=== PATIENT | male | born 1960 | race Caucasian/White ===

== ENCOUNTER 2019-11-08 08:03 | Day surgery (SDC) | payer BC ==
[2019-11-08] MEDS ORDERED: fentaNYL 100 MCG/2 ML SDV ONE (08:58)
[2019-11-08] MEDS ORDERED: Midazolam 1 MG/ML 2 ML SDV ONE (08:58)
[2019-11-08] MEDS ORDERED: Propofol 200 MG/20 ML SDV ONE ×2 (08:58→11:12)
[2019-11-08] MEDS ORDERED: Dextrose 5%-Lactated Ringers 1,000 ML IV SCH (09:15)
--- NOTE | 2019-11-09 11:26 | OR ---
DATE OF PROCEDURE: 11/08/2019 SURGEON: Ankit Lima MD PREOPERATIVE DIAGNOSES: 1. Gastroesophageal reflux disease. 2. History of some rectal bleeding. POSTOPERATIVE DIAGNOSES: 1. Upper endoscopy showing. a. 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 b. Mild proximal duodenitis. 2. Colonoscopy showing. a. Mildly excoriated hemorrhoids. b. Uncomplicated left colonic diverticulosis. OPERATIVE PROCEDURES: 1. Esophagogastroduodenoscopy with. a. Biopsy of esophagogastric junction for histologic evaluation. b. Biopsies of antrum for CLOtest. 2. Flexible colonoscopy. ANESTHESIA: IV sedation. INDICATION FOR PROCEDURE: This is a 59-year-old male presenting with history of gastroesophageal reflux disease. Up until recently, he has treated this with oral antacids as well as some Zantac. He was recently placed on omeprazole 40 mg a day and, with this, he has had very good symptom control. He also has a history of some intermittent rectal bleeding which occurs every few weeks over the last year or more. The patient does not have any family or personal history of colonic neoplasia. The plan is to proceed with upper and lower endoscopies with biopsies and/or polypectomy as indicated. Potential risks including bleeding and perforation were discussed, and the patient wishes to proceed. DETAILS OF PROCEDURE: The patient was taken to the operating room and placed in a left lateral decubitus position. IV sedation was administered, after which, the upper GI endoscope was passed orally through the length of the esophagus, then into the stomach with retroflexion view of the fundus, thereafter through the pyloric channel and into the proximal duodenum. Findings included normal hypopharynx, larynx, upper esophageal sphincter, and esophageal body. At the EG junction, the patient was noted to have a small hiatal hernia between the range of 1 cm or so, with some mildly active gastroesophageal reflux disease. 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 There was no plaquing or stricturing or growth suggestive of neoplastic change. Within the stomach, no significant additional abnormalities were noted. There was some mild redness and edema of the proximal duodenal mucosa consistent with some duodenitis, but without ulcers or erosions. At this point, biopsies were obtained from the antrum and sent for CLOtest for H pylori. 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 No bleeding from the biopsy sites was seen, and the procedure then concluded. Attention was then taken to the colonoscopy. Initial digital rectal exam was performed and was unremarkable. Colonoscope was then passed into the rectum with retroflexion revealing some mildly excoriated hemorrhoidal columns. The scope was eventually passed to the level of the cecum. The prep was fairly good with only a small amount of liquid stool present. The patient did have some left-sided uncomplicated diverticulosis. Otherwise, there were no polyps, areas of colitis, or any signs of a neoplastic change. The scope was then withdrawn, the above findings reconfirmed, and the procedure then concluded. The patient's rectal bleeding by history as well as endoscopic findings, most likely is related to hemorrhoidal bleeding. He is instructed that if he has persistent bleeding over time, he can present for consideration of hemorrhoidal banding. Otherwise, we will have him stay on the omeprazole 40 mg a day at this point. To see ALISON Mcneal, in roughly 3 months to see how he is doing with reflux symptoms. Ankit Lima MD /[id number]
== END 2019-11-08 12:45 | disposition home or self-care (01) ==
LOC: JP.SDS 08:03
PROVIDERS: ATTEND Surgery
DX: K21.0 Gastro-esophageal reflux disease with esophagitis (principal); K44.9 Diaphragmatic hernia without obstruction or gangrene; K29.80 Duodenitis without bleeding; K64.9 Unspecified hemorrhoids; K57.30 Diverticulosis of large intestine without perforation or abscess without bleeding; Z87.19 Personal history of other diseases of the digestive system; Z79.899 Other long term (current) drug therapy; Z88.5 Allergy status to narcotic agent
CPT/HCPCS: 43239; 45378; 87081; J2250; J2704; J3010; J7121

== ENCOUNTER 2022-02-27 07:19 | Day surgery (SDC) | payer BC ==
[~2022-02-27 07:19] MED LIST: Midazolam 1 MG/ML 2 ML SDV ONE; Propofol 200 MG/20 ML SDV ONE; fentaNYL 100 MCG/2 ML SDV ONE
[2022-02-27] MEDS ORDERED: Dextrose 5%-Lactated Ringers 1,000 ML IV SCH (07:45)
== END 2022-02-27 10:35 | disposition home or self-care (01) ==
LOC: JP.SDS 07:19
PROVIDERS: ATTEND Surgery
DX: K20.0 Eosinophilic esophagitis (principal); K22.89 Other specified disease of esophagus; K44.9 Diaphragmatic hernia without obstruction or gangrene; K21.9 Gastro-esophageal reflux disease without esophagitis; E78.5 Hyperlipidemia, unspecified; F41.9 Anxiety disorder, unspecified; Z87.19 Personal history of other diseases of the digestive system
CPT/HCPCS: 43239; J2250; J2704; J3010; J7121

== ENCOUNTER 2022-09-14 15:39 | Emergency (ER) | payer BC ==
[2022-09-14 17:15] LABS: TROPONIN I HIGH SENSITIVITY 5.7 pg/mL (<=60.3)
== END 2022-09-14 17:52 | disposition home or self-care (01) ==
LOC: JP.ED 15:39
DX: R03.0 Elevated blood-pressure reading, without diagnosis of hypertension (principal); Z72.0 Tobacco use; Z88.8 Allergy status to other drugs, medicaments and biological substances; Z79.899 Other long term (current) drug therapy
CPT/HCPCS: 36415; 71046; 71046-26; 80048; 81001; 84484; 85025; 93005; 99284

== ENCOUNTER 2023-08-31 14:31 | Inpatient (IN) | payer BC ==
[2023-08-31] MEDS ORDERED: Lidocaine 1% 5 ML VIAL INJECT ONE (15:30)
[2023-08-31 15:39] LABS: BASOPHILS ABSOLUTE AUTO 0.06 K/uL (0.00-0.10); BASOPHILS PERCENT AUTO 0.5 % (0.1-1.3); EOSINOPHILS PERCENT AUTO 0.1 % (0.0-5.4); HEMATOCRIT 37.2 % (38.4-49.7); HEMOGLOBIN 12.1 g/dL (12.9-16.9); IMMATURE GRAN ABSOLUTE AUTO 0.05 K/uL (0.00-0.23); IMMATURE GRAN PERCENT AUTO 0.4 % (0.0-0.7); LYMPHOCYTES PERCENT AUTO 12.9 % (11.4-47.7); MEAN CORPUSCULAR HEMOGLOBIN 27.8 pg (31.6-35.5); MEAN CORPUSCULAR HGB CONC 32.5 g/dL (31.6-35.5); MEAN CORPUSCULAR VOLUME 85.5 fL (81.4-99.0); MONOCYTES ABSOLUTE AUTO 1.06 K/uL (0.20-0.90); MONOCYTES PERCENT AUTO 8.5 % (3.3-12.6); NEUTROPHILS ABSOLUTE AUTO 9.67 K/uL (1.0-7.6); NEUTROPHILS PERCENT AUTO 77.6 % (40.0-78.1); PLATELET COUNT,PLT 282 K/uL (130-375); RED BLOOD CELL COUNT 4.35 M/uL (4.14-5.76); WHITE BLOOD CELL COUNT,WBC 12.5 K/uL (3.2-11.0)
[2023-08-31 15:42] LABS: EOSINOPHILS ABSOLUTE AUTO 0.01 K/uL (0.00-0.40)
[2023-08-31] MEDS ORDERED: Sodium Chloride 0.9% 1,000 ML IV ONE ×2 (15:54→18:10)
[2023-08-31] MEDS ORDERED: Sodium Chloride 0.9% 10 ML Syringe FLUSH PRN (15:54)
[2023-08-31] MEDS ORDERED: Piperacillin/Tazobactam 3.375 GM in Sodium Chloride 0.9% 50 ML IV ONE (15:54)
[2023-08-31 16:01] LABS: C-REACTIVE PROTEIN 1.54 mg/dL (0.0-0.3); CALCIUM 8.6 mg/dL (8.5-10.1); CREATININE 0.9 mg/dL (0.8-1.3); EST CRCL DRUG DOSING (CG) 94.6 mL/min; POTASSIUM,K 4.5 mmol/L (3.6-5.2)
[2023-08-31 16:04] LABS: ANION GAP 15.5 mmol/L (5.0-14.0)
[2023-08-31] MEDS ORDERED: Piperacillin/Tazobactam/Dext 3.375 GM in Premix Bag 1 BAG IV ONE (17:30)
[2023-08-31] MEDS ORDERED: Naloxone 0.4 MG/ML SDV IVPUSH PRN (19:51)
[2023-08-31] MEDS ORDERED: Morphine 2 MG/ML SYRINGE IVPUSH ONE (19:51)
[2023-08-31 20:14] LABS: CORONAVIRUS COVID-19 NAA NEGATIVE (NEGATIVE); INFLUENZA A NAA NEGATIVE (NEGATIVE); INFLUENZA B NAA NEGATIVE (NEGATIVE); RESPIRATORY SYNCYTIAL VIR NAA NEGATIVE (NEGATIVE)
[2023-08-31] MEDS ORDERED: Docusate Sodium 100 MG Cap PO PRN (21:35)
[2023-08-31] MEDS ORDERED: Vancomycin 1 GM SDV IV SCH (21:35)
[2023-08-31] MEDS ORDERED: Diphtheria,Pertussis(Acell),Tetanus Vaccine 0.5 ML Syringe IM ONE (21:35)
[2023-08-31] MEDS ORDERED: Morphine 2 MG/ML SYRINGE IVPUSH PRN (21:35)
[2023-08-31] MEDS ORDERED: Bisacodyl 5 MG Tab PO PRN (21:35)
[2023-08-31] MEDS ORDERED: Ondansetron 4 MG/2 ML SDV IV PRN (21:35)
[2023-08-31] MEDS ORDERED: Ondansetron 4 MG Tab.DIS PO PRN (21:35)
[2023-08-31] MEDS ORDERED: Albuterol 0.083% 2.5 MG/3 ML Neb Soln NEB PRN (21:35)
[2023-08-31] MEDS ORDERED: Pantoprazole 40 MG Vial IV SCH (21:35)
[2023-08-31] MEDS ORDERED: Ketorolac 30 MG/ML SDV IVPUSH PRN (21:35)
[2023-08-31] MEDS: Sodium Chloride 0.9% 1,000 ML IV SCH (22:08)
[2023-08-31] MEDS: traZODone 50 MG Tab PO SCH (22:10)
[2023-08-31] MEDS: Acetaminophen 325 MG Tab PO PRN (22:10)
[2023-08-31] MEDS: Enoxaparin 40 MG/0.4 ML Syringe SUBCUT SCH (22:11)
[2023-08-31] MEDS ORDERED: Piperacillin/Tazobactam 3.375 GM in Sodium Chloride 0.9% 50 ML IV SCH (23:00)
[2023-08-31] MEDS: Piperacillin/Tazobactam 3.375 GM in Sodium Chloride 0.9% 50 ML IV SCH (23:46)
[2023-09-01 05:40] LABS: BASOPHILS ABSOLUTE AUTO 0.04 K/uL (0.00-0.10); BASOPHILS PERCENT AUTO 0.7 % (0.1-1.3); EOSINOPHILS ABSOLUTE AUTO 0.14 K/uL (0.00-0.40); EOSINOPHILS PERCENT AUTO 2.3 % (0.0-5.4); HEMATOCRIT 33.7 % (38.4-49.7); HEMOGLOBIN 10.8 g/dL (12.9-16.9); IMMATURE GRAN PERCENT AUTO 0.3 % (0.0-0.7); LYMPHOCYTES ABSOLUTE AUTO 1.18 K/uL (0.8-3.3); LYMPHOCYTES PERCENT AUTO 19.8 % (11.4-47.7); MEAN CORPUSCULAR HEMOGLOBIN 27.5 pg (31.6-35.5); MEAN CORPUSCULAR VOLUME 85.8 fL (81.4-99.0); MONOCYTES ABSOLUTE AUTO 0.51 K/uL (0.20-0.90); MONOCYTES PERCENT AUTO 8.5 % (3.3-12.6); NEUTROPHILS ABSOLUTE AUTO 4.08 K/uL (1.0-7.6); NEUTROPHILS PERCENT AUTO 68.4 % (40.0-78.1); PLATELET COUNT,PLT 250 K/uL (130-375); RED BLOOD CELL COUNT 3.93 M/uL (4.14-5.76)
[2023-09-01 05:46] LABS: IMMATURE GRAN ABSOLUTE AUTO 0.02 K/uL (0.00-0.23)
[2023-09-01 05:56] LABS: ANION GAP 10.7 mmol/L (5.0-14.0); C-REACTIVE PROTEIN 2.91 mg/dL (0.0-0.3); CALCIUM 7.7 mg/dL (8.5-10.1); CREATININE 0.9 mg/dL (0.8-1.3); EST CRCL DRUG DOSING (CG) 94.74 mL/min; POTASSIUM,K 3.6 mmol/L (3.6-5.2)
[2023-09-01] MEDS: Piperacillin/Tazobactam 3.375 GM in Sodium Chloride 0.9% 50 ML IV SCH (05:57)
[2023-09-01] MEDS: oxyCODONE 5 MG Tab PO PRN ×3 (06:15→19:59)
[2023-09-01] MEDS: Sodium Chloride 0.9% 1,000 ML IV SCH (06:39)
[2023-09-01] MEDS: Losartan 25 MG Tab PO SCH (09:02)
[2023-09-01] MEDS: Cholecalciferol (Vitamin D3) 25 MCG Tab PO SCH (09:02)
[2023-09-01] MEDS: Multivitamins with Iron/Calcium/Folic Acid/Minerals Tab PO SCH (09:03)
[2023-09-01] MEDS ORDERED: FLU (Fluarix Quad) QS2023-24(6MOS UP)/PF 60 MCG/0.5 ML Syringe IM ONE (10:00)
[2023-09-01] MEDS: Piperacillin/Tazobactam/Dext 3.375 GM in Premix Bag 1 BAG IV SCH ×3 (12:40→23:43)
[2023-09-01] MEDS: Pantoprazole 40 MG Tab.CR PO SCH (21:03)
[2023-09-01] MEDS: traZODone 50 MG Tab PO SCH (21:03)
[2023-09-01] MEDS: Enoxaparin 40 MG/0.4 ML Syringe SUBCUT SCH (21:04)
[2023-09-02] MEDS: oxyCODONE 5 MG Tab PO PRN ×4 (01:09→21:51)
[2023-09-02] MEDS: Piperacillin/Tazobactam/Dext 3.375 GM in Premix Bag 1 BAG IV SCH (05:19)
[2023-09-02] MEDS: Sodium Chloride 0.9% 1,000 ML IV SCH ×2 (05:20→13:19)
[2023-09-02 05:43] LABS: HEMATOCRIT 34.3 % (38.4-49.7); HEMOGLOBIN 11.2 g/dL (12.9-16.9); MEAN CORPUSCULAR HEMOGLOBIN 28.1 pg (31.6-35.5); MEAN CORPUSCULAR HGB CONC 32.7 g/dL (31.6-35.5); RED BLOOD CELL COUNT 3.99 M/uL (4.14-5.76); WHITE BLOOD CELL COUNT,WBC 5.4 K/uL (3.2-11.0)
[2023-09-02 06:14] LABS: CALCIUM 8.1 mg/dL (8.5-10.1); EST CRCL DRUG DOSING (CG) 85.26 mL/min; POTASSIUM,K 3.6 mmol/L (3.6-5.2); VANCOMYCIN RANDOM 9.3 ug/mL (0.0-50.0)
[2023-09-02 06:16] LABS: ANION GAP 13.6 mmol/L (5.0-14.0)
[2023-09-02] MEDS: Cholecalciferol (Vitamin D3) 25 MCG Tab PO SCH (09:20)
[2023-09-02] MEDS: Losartan 25 MG Tab PO SCH (09:22)
[2023-09-02] MEDS: Multivitamins with Iron/Calcium/Folic Acid/Minerals Tab PO SCH (09:22)
[2023-09-02] MEDS: traZODone 50 MG Tab PO SCH (21:24)
[2023-09-02] MEDS: Enoxaparin 40 MG/0.4 ML Syringe SUBCUT SCH (21:24)
[2023-09-02] MEDS: Pantoprazole 40 MG Tab.CR PO SCH (21:25)
[2023-09-03] MEDS: traZODone 50 MG Tab PO SCH ×2 (06:10→21:14)
[2023-09-03] MEDS: Multivitamins with Iron/Calcium/Folic Acid/Minerals Tab PO SCH (08:58)
[2023-09-03] MEDS: Cholecalciferol (Vitamin D3) 25 MCG Tab PO SCH (08:59)
[2023-09-03] MEDS: Sulfamethoxazole/Trimethoprim 800-160 MG Tab PO SCH ×2 (08:59→21:14)
[2023-09-03] MEDS: Losartan 25 MG Tab PO SCH (08:59)
[2023-09-03] MEDS: oxyCODONE 5 MG Tab PO PRN ×2 (12:36→19:36)
[2023-09-03] MEDS: Acetaminophen 325 MG Tab PO PRN (17:03)
[2023-09-03] MEDS: Enoxaparin 40 MG/0.4 ML Syringe SUBCUT SCH (21:14)
[2023-09-03] MEDS: Pantoprazole 40 MG Tab.CR PO SCH (21:14)
[2023-09-04] MEDS: Sulfamethoxazole/Trimethoprim 800-160 MG Tab PO SCH (08:07)
[2023-09-04] MEDS: Multivitamins with Iron/Calcium/Folic Acid/Minerals Tab PO SCH (08:07)
[2023-09-04] MEDS: Cholecalciferol (Vitamin D3) 25 MCG Tab PO SCH (08:07)
[2023-09-04] MEDS: Losartan 25 MG Tab PO SCH (08:07)
== END 2023-09-04 11:10 | disposition home or self-care (01) | DRG 720 ==
LOC: JP.ED 14:31 → JP.MS 19:55
PROVIDERS: ADMIT Internal Medicine; ATTEND Internal Medicine
PROC: 3E03329 Introduction of Other Anti-infective into Peripheral Vein, Percutaneous Approach (ICD-10-PCS; 2023-08-31)
PROC: 0H9GXZZ Drainage of Left Hand Skin, External Approach (ICD-10-PCS; principal; 2023-09-01)
DX: A41.9 Sepsis, unspecified organism (principal); L03.012 Cellulitis of left finger; I10 Essential (primary) hypertension; L02.512 Cutaneous abscess of left hand; K21.9 Gastro-esophageal reflux disease without esophagitis; B95.62 Methicillin resistant Staphylococcus aureus infection as the cause of diseases classified elsewhere; F41.9 Anxiety disorder, unspecified; F17.210 Nicotine dependence, cigarettes, uncomplicated; Z98.890 Other specified postprocedural states; Z79.899 Other long term (current) drug therapy; Z88.8 Allergy status to other drugs, medicaments and biological substances; Z11.52 Encounter for screening for COVID-19
CPT/HCPCS: 0241U; 10060; 36415; 73140-26-FA; 73140-FA; 80048; 80202; 82550; 83605; 85025; 85027; 86140; 87070; 87077; 87186; 87205; 90471; 90686; 90715; 96365; 96366; 96367; 99221; 99231; 99238; 99284-25; 99285; A9270-GY; C9113; G0008; J1650; J2270; J2543; J3370; J3490; J7030; J7050

== ENCOUNTER 2024-10-13 11:57 | Emergency (ER) | payer BC ==
[2024-10-13 14:17] LABS: BASOPHILS ABSOLUTE AUTO 0.08 K/uL (0.00-0.10); BASOPHILS PERCENT AUTO 2.2 % (0.1-1.3); EOSINOPHILS ABSOLUTE AUTO 0.11 K/uL (0.00-0.40); IMMATURE GRAN PERCENT AUTO 0.3 % (0.0-0.7); LYMPHOCYTES ABSOLUTE AUTO 1.37 K/uL (0.8-3.3); LYMPHOCYTES PERCENT AUTO 36.9 % (11.4-47.7); MEAN CORPUSCULAR HEMOGLOBIN 27.6 pg (31.6-35.5); MEAN CORPUSCULAR HGB CONC 33.3 g/dL (31.6-35.5); MEAN CORPUSCULAR VOLUME 82.9 fL (81.4-99.0); MONOCYTES ABSOLUTE AUTO 0.37 K/uL (0.20-0.90); NEUTROPHILS ABSOLUTE AUTO 1.77 K/uL (1.0-7.6); NEUTROPHILS PERCENT AUTO 47.6 % (40.0-78.1); PLATELET COUNT,PLT 247 K/uL (130-375); RED BLOOD CELL COUNT 3.62 M/uL (4.14-5.76); WHITE BLOOD CELL COUNT,WBC 3.7 K/uL (3.2-11.0)
[2024-10-13 14:28] LABS: IMMATURE GRAN ABSOLUTE AUTO 0.01 K/uL (0.00-0.23)
[2024-10-13 14:30] LABS: AMPHETAMINES SCREEN, URINE NEGATIVE (NEGATIVE); BARBITURATE SCREEN,URINE NEGATIVE (NEGATIVE); BENZODIAZEPINES SCREEN,URINE NEGATIVE (NEGATIVE); METHADONE SCREEN, URINE NEGATIVE (NEGATIVE); METHAMPHETAMINES SCREEN, URINE NEGATIVE (NEGATIVE); OXYCODONE SCREEN,URINE NEGATIVE (NEGATIVE); PROPOXYPHENE SCREEN,URINE NEGATIVE (NEGATIVE); THC SCREEN,URINE 50 NG/ML NEGATIVE (NEGATIVE)
[2024-10-13 14:38] LABS: A/G RATIO 0.8 (1.2-2.2); ALANINE AMINOTRANSFERASE,ALT 46 U/L (12-78); ALKALINE PHOSPHATASE 100 U/L (46-116); ASPARTATE AMNIOTRANSFERASE,AST 58 U/L (15-37); BILIRUBIN TOTAL 0.3 mg/dL (0.2-1.0); BLOOD UREA NITROGEN,BUN 17 mg/dL (7-18); CALCIUM 7.6 mg/dL (8.5-10.1); CARBON DIOXIDE,CO2 23 mmol/L (21-32); CHLORIDE,CL 100 mmol/L (100-108); CREATININE 0.8 mg/dL (0.8-1.3); ESTIMATED GFR 100 mL/min (>60); GLUCOSE RANDOM 129 mg/dL (74-106); POTASSIUM,K 3.9 mmol/L (3.6-5.2); PROTEIN TOTAL,TP 6.9 g/dL (6.4-8.2); SODIUM,NA 136 mmol/L (140-148)
[2024-10-13 14:39] LABS: ANION GAP 16.9 mmol/L (5.0-14.0)
[2024-10-13] MEDS: Ondansetron 4 MG Tab.DIS PO ONE (14:51)
== END 2024-10-13 15:45 | disposition home or self-care (01) ==
LOC: JP.ED 11:57
DX: F10.10 Alcohol abuse, uncomplicated (principal); I10 Essential (primary) hypertension; K21.9 Gastro-esophageal reflux disease without esophagitis; Z87.891 Personal history of nicotine dependence; Z79.82 Long term (current) use of aspirin; Z79.899 Other long term (current) drug therapy; Z88.8 Allergy status to other drugs, medicaments and biological substances
CPT/HCPCS: 36415; 80053; 80305; 80307; 85025; 99284; Q0162